=== PATIENT | female | born 1960 | race Caucasian/White ===

== ENCOUNTER 2016-07-26 09:51 | Day surgery (SDC) | payer OTHER ==
[~2016-07-26] VITALS: Ht 157.5 cm; Wt 81.7 kg
[~2016-07-26 09:51] MED LIST: ACET325T51 PO; DIPH25CA6 PO; ESTR2TAB2 PO; OMEP20TA24 PO; PHEN-499 PO; TOPI-31 PO; fentaNYL-PF 50 mCg/mL 2 mL Inj IVPUSH PRN
[2016-07-26] MEDS ORDERED: 0.9% Sodium Chloride 1,000 ML ONE (10:01)
[2016-07-26 10:30] VITALS: BP 108/72; PULSE 57; RESP 16; O2SAT 99
[2016-07-26 11:03] VITALS: BP 104/57; PULSE 97; RESP 16; O2SAT 97
[2016-07-26 11:13] VITALS: BP 112/72; PULSE 85; RESP 16; O2SAT 97
--- NOTE | 2016-07-26 13:40 | ENDO ---
[address] [address] ENDOSCOPY PROCEDURE PATIENT: RONNIE LOVE : 1960 MR#: [id number] ADMIT: 07/26/2016 JOB ID: [id number] DATE: 07/26/2016 PROCEDURE: Esophagogastroduodenoscopy with biopsy. PREOPERATIVE DIAGNOSIS(ES): Right upper quadrant pain. POSTOPERATIVE DIAGNOSIS(ES): 1. Mild distal esophagitis. 2. Small hiatal hernia. 3. Mild nonerosive gastritis. ANESTHESIA: 1. Fentanyl 100 mcg. 2. Versed 5 mg IV administered. COMPLICATIONS: None. BLOOD LOSS: Minimal. DESCRIPTION OF PROCEDURE: After risks and benefits have been explained to the patient, informed consent was obtained. After anesthesia administered, upper endoscope was then inserted into the mouth and intubated the esophagus, stomach, second portion of duodenum, and mucosa carefully examined. After the procedure was done, the scope withdrawn and the procedure was terminated. FINDINGS: Upon inspection of the esophagus, there was mild distal esophagitis was seen. Z-line located 35 cm from incisors. Upon entering the stomach, there was mild nonerosive gastritis. No masses, ulcers, or lesions were seen. Retroflexion showed small hiatal hernia. Duodenal bulb, first and second portion were normal. Biopsies taken of the antrum and body of the stomach and distal esophagus. IMPRESSION: 1. Mild nonerosive gastritis. 2. Distal esophagitis, mild. 3. Small hiatal hernia. RECOMMENDATION: 1. Anti-reflux medication. 2. Followup with Makayla Townsend, GI clinic routine.
[2016-07-27] MEDS ORDERED: Sodium Chloride LOK Flush 10 mL Syringe IV PRN (06:00)
[2016-07-27] MEDS ORDERED: 0.9% Sodium Chloride 1,000 ML IV SCH (06:00)
--- NOTE | 2016-07-29 14:21 | PATH ---
SURGICAL PATHOLOGY Attending Physician:Demarco Jay MD CASE STATUS: Signed Out PATIENT NAME: RONNIE LOEV PID: [id number] : 1960 DATE COLLECTED:07/26/2016 21:16 SPECIMEN: 1: Esophagus, Biopsy 2: Gastric, Biopsy 3: Stomach, Antrum, Biopsy CLINICAL HISTORY: REFLUX, H/H GASTRITIS 1). DISTAL ESOPHAGUS BIOPSY 2). GASTRIC BODY BIOPSY 3). ANTRAL BIOPSY FINAL DIAGNOSIS: 1.DISTAL ESOPHAGUS BIOPSY: SQUAMOUS MUCOSA AND GASTRIC CARDIA-TYPE MUCOSA WITH CHRONIC INFLAMMATION AND REACTIVE EPITHELIAL CHANGES. Negative for specialized metaplasia of Beckham' s-type esophagus. Negative for dysplasia and malignancy. Scattered eosinophils present within squamous epithelium consistent with changes of chronic reflux. 2.GASTRIC BODY BIOPSY: MILD CHRONIC GASTRITIS INVOLVING FUNDIC MUCOSA. Negative for evidence of Helicobacter. Negative for intestinal metaplasia. Negative for dysplasia and malignancy. 3.GASTRIC ANTRAL BIOPSY: MILD CHRONIC GASTRITIS INVOLVING ANTRAL MUCOSA. Negative for evidence of Helicobacter. Negative for intestinal metaplasia. Negative for dysplasia and malignancy. ICD10 code K21.0 GROSS DESCRIPTION: Received are three formalin-filled containers, each labeled with the patient' s name. 1. Received in formalin, labeled with the patient' s name and "distal esoph biopsy", is one fragment of baldwin, soft tissue measuring 0.2 x 0.1 x 0.1 cm. The fragment is totally submitted in cassette 1A. 2. Received in formalin, labeled with the patient' s name and "gastric body BX", is one fragment of baldwin, soft tissue measuring 0.3 x 0.2 x 0.1 cm. The fragment is totally submitted in cassette 2A. 3. Received in formalin, labeled with the patient' s name and "antral BX", are two fragments of baldwin, soft tissue ranging in size from 0.2 x 0.1 x 0.1 cm to 0.2 x 0.2 x 0.2 cm. All fragments are totally submitted in cassette 3A. ([id number]) MICRO DESCRIPTION: See diagnosis. ICD-9 CODES: CPT CODES: 1: 29909 2: 76537 3: 94040 Electronically Signed Out Foreign Yadav MD [facility] [address] [place] [id number] Technical component performed at [facility], [address], [place], [address]
== END 2016-07-26 23:59 | disposition home or self-care (01) ==
LOC: END 09:51
PROVIDERS: ATTEND Internal Medicine Gastroenterology
DX: K29.50 Unspecified chronic gastritis without bleeding (principal); K22.70 Barrett's esophagus without dysplasia; K21.9 Gastro-esophageal reflux disease without esophagitis; K44.9 Diaphragmatic hernia without obstruction or gangrene; K20.9 Esophagitis, unspecified
CPT/HCPCS: 43239; 88305; G0500; J2250; J3010; J7030